=== PATIENT | male | born 1950 | race Caucasian/White ===

== ENCOUNTER → 2021-11-09 | Outpatient (CLI) | payer BC ==
[2021-11-09 17:56] LABS: HCT 40.3 % (39.6-50.0); HGB 13.4 g/dL (13.0-17.0); MCH 34.4 pg (27.0-32.0); MCHC 33.3 g/dL (32.0-37.0); MCV 103.3 fL (80.0-97.0); Mean Platelet Volume 12.5 fL (9.5-12.2); NRBC Per 100 WBC 0 /100 WBCS (0.0-0.0); Platelet Count 187 X 10*3/uL (140-440); RDW 12.2 % (11.5-14.5); WBC 6.53 X 10*3/uL (4.50-10.00)
[2021-11-09 18:11] LABS: African American GFR (CKD) 66.4 (60.0-200.0); Albumin 4.5 g/dL (3.8-4.9); Albumin/Globulin Ratio 2.75 (1.60-3.17); BUN/Creat Ratio 24.8 Ratio (12.00-20.00); Blood Urea Nitrogen 31.5 mg/dL (9.0-27.0); Calcium 9.2 mg/dL (8.7-10.3); Carbon Dioxide 22.7 mmol/L (20.0-27.5); Globulin 1.6 g/dL (1.6-3.3); Non-African American GFR(CKD) 57.3 (60.0-200.0); Potassium 5.1 mmol/L (3.5-5.5); Total Bilirubin 0.5 mg/dL (0.30-1.20); Total Protein 6.2 g/dL (6.2-8.2)
[2021-11-09 23:14] LABS: Appearance,Urine Clear (Clear); Bilirubin,Urine Negative (Negative); Blood,Urine Negative (Negative); Color,Urine Yellow (Yellow); Ketones,Urine Negative (Negative); Nitrite,Urine Negative (Negative)
[2021-11-09 23:28] LABS: Bacteria,Urine None Seen /HPF (None Seen)
== END | disposition home or self-care (01) ==
LOC: LABPAT 14:29
PROVIDERS: ATTEND Orthopaedic Surgery
DX: Z01.812 Encounter for preprocedural laboratory examination (principal)
CPT/HCPCS: 80053; 81001; 85027; 85610; 85730; 87070; 93005

== ENCOUNTER → 2021-11-16 | Outpatient (CLI) | payer BC | END | disposition home or self-care (01) | LOC: LABWHC1 14:57 | PROVIDERS: ATTEND Internal Medicine Interventional Cardiology | DX: I44.2 Atrioventricular block, complete (principal) | CPT/HCPCS: 36415; 84443 ==

== ENCOUNTER 2021-12-10 07:41 | Day surgery (SDC) | payer BC ==
[~2021-12-10 07:41] MED LIST: LACTATED RINGERS 1,000 ML IV SCH; SODIUM CHLORIDE 0.9% 1,000 ML IV SCH; ceFAZolin 1 GM in SODIUM CHLORIDE 0.9% IRRIG BTL 250 ML IRRIGATION PRN
[2021-12-10] MEDS ORDERED: SODIUM CHLORIDE 0.9% 1,000 ML IV ONE (07:56)
[2021-12-10] MEDS ORDERED: fentaNYL (PF) 50 MCG/ML 2 ML AMP ONE (09:48)
[2021-12-10] MEDS ORDERED: PROPOFOL 10 MG/ML 20 ML VIAL IV ONE (09:48)
[2021-12-10] MEDS ORDERED: MIDAZOLAM 2 MG/2 ML VIAL ONE (09:48)
[2021-12-10] MEDS ORDERED: IOPAMIDOL-370 50ML BTL INJ ONE (10:00)
[2021-12-10] MEDS ORDERED: LIDOCAINE 1% INJ 10MG/ML (30 ML VIAL-PF) SQ ONE (10:35)
--- NOTE | 2021-12-10 13:19 | P.EPPROC ---
- EP Procedure Note Electrophysiology Procedure Note: Diagnosis Bradycardia, standard pacemaker will result in RV pacing = 100% Complete heart block with severe bradycardia Procedure Biventricular pacemaker implantation with LB lead/Medtronic PERCEPTA Details Patient was brought to the EP lab in a fasting state. Written informed consent was obtained prior to the procedure. Conscious sedation provided by anesthesia team IV antibiotics administered. Local anesthesia administered. A 4 cm incision made in the pectoral area. Subfascial pocket made. Venous access obtained Venous sheaths placed. Leads placed in the right heart Atrial lead position the right atrial appendage. Medtronic atrial lead, model #5076, 52 cm in length screwed in the right atrial appendage, active fix lead P waves 1.5 mV, excellent control injury stable position, pacing impedance 437 ohms and pacing threshold 0.5 V at 0.4 ms RV lead position in the RV apex. Medtronic model #5076, 58 cm in length, active fix Pacing impedance 988 ohms, pacing threshold 1 warted 0.4 ms LB lead positioned in the septum/left bundle Medtronic model #3830, 69 cm in length Left bundle threshold 0.5 V at 0.4 ms pacing impedance 380 ohms Right bundle branch block morphology(rSR close to threshold and QR pattern at high outputs Stim-QRS peak in lead V6 = 68 msec Biventricular pacemaker device connected to the leads and placed in the subfascial pocket Patient tolerance the procedure well without acute complications Tyrx pouch placed Plan DDD mode with preferential left bundle pacing RV pacing 80 msec after LB pacing 50-130 bpm
--- NOTE | 2021-12-10 14:21 | XR ---
EXAMINATION TYPE: XR chest 1V portable DATE OF EXAM: 12/10/2021 COMPARISON: None INDICATION: Lead placement check TECHNIQUE: Single frontal view of the chest is obtained. FINDINGS: The heart size is normal. The pulmonary vasculature is normal. The lungs are clear. No pneumothorax is evident postpacemaker placement. Triple lead pacemaker is present. IMPRESSION: 1. No acute pulmonary process. 2. No pneumothorax
[2021-12-10] MEDS: ACETAMINOPHEN TAB 325 MG TAB PO PRN (20:36)
[2021-12-10 21:01] LABS: HCT 40.3 % (39.0-53.0); HGB 13.6 gm/dL (13.0-17.5); MCHC 33.6 g/dL (31.0-37.0); MCV 101.1 fL (80.0-100.0); Platelet Count 174 k/uL (150-450); RBC 3.99 m/uL (4.30-5.90); RDW 11.9 % (11.5-15.5); WBC 6.8 k/uL (3.8-10.6)
[2021-12-10 21:27] LABS: African American GFR (CKD) 57 (>60 ml/min/1.73 sqM); Anion Gap 9 mmol/L; Blood Urea Nitrogen 34 mg/dL (9-20); Calcium 8.5 mg/dL (8.4-10.2); Carbon Dioxide 24 mmol/L (22-30); Chloride 104 mmol/L (98-107); Glucose 97 mg/dL (74-99); Non-African American GFR(CKD) 49 (>60 ml/min/1.73 sqM); Potassium 4.3 mmol/L (3.5-5.1); Sodium 137 mmol/L (137-145)
[2021-12-11 04:36] VITALS: PULSE 50
[2021-12-11] MEDS: ACETAMINOPHEN TAB 325 MG TAB PO PRN (06:58)
[2021-12-11 07:25] VITALS: BP 173/72; RESP 18; TEMP 98
[2021-12-11] MEDS ORDERED: SODIUM CHLORIDE 0.9% 500 ML 500 ML IV ONE (08:15)
--- NOTE | 2021-12-11 08:17 | P.DS ---
Providers Attending physician: Bimal El Primary care physician: Stated None Hospital Course: Patient is doing well with her was blood pressure is still elevated Attending examination is normal No JVD Normal heart sounds are regular Breath sounds are clear Basic site is healed well line minimal soakage Impression Complete heart block with severe bradycardia Biventricular pacemaker with left bundle pacing Today's twelve-lead EKG shows a QRS of 150 ms right bundle branch block morphol ogy, QRS pattern At lower outputs, a typical right bundle branch block is seen Backup RV pacing Hemoglobin 13.6 BUN 34 and creatinine 1.44 Saline IV today, likely hypoperfusion with severe bradycardia Start lisinopril 20 mg by mouth daily for hypertension management Follow-up with Dr. Estrada in a week Follow-up blood pressure and renal function on lisinopril Plan - Discharge Summary Discharge Rx Participant: No New Discharge Prescriptions: No Action lisinopriL [Zestril] 20 DAILY Discharge Medication List lisinopriL [Zestril] 20 DAILY 12/11/21 [History] Follow up Appointment(s)/Referral(s): Bimal El MD [STAFF PHYSICIAN] - As Needed (Office will call with appointment date and time Appointment will be in 5-7 days at the Device Clinic at [facility] Main Office on [address]) Amna Estrada MD [STAFF PHYSICIAN] - 1 Week Activity/Diet/Wound Care/Special Instructions: PATIENT EDUCATION MATERIAL Instructions following a heart rhythm device implant. 1. Keep dressing DRY for 5 DAYS. You may cover the area with Saran or Cling Wrap, prior to a shower. 2. The dressing will be removed in the [facility] at [facility]. Absorbable sutures were used to close the wound. 3. Avoid raising the left arm above the shoulder level. 4 week restriction 4. Avoid arm movements, like backscratching, rubbing the head, or pulling on a cord. 4 weeks restriction 5. Gentle range of motion movements of the shoulder, closest to the incision should be performed to avoid a frozen shoulder. (Pendulum exercises of the shoulder) 6. The opposite arm may be used freely. 7. Avoid driving for 7 days. 8. Avoid activities such as golfing, swimming, weed whacking, lifting more than 10 pounds weight, bowling, gymnastics and weight training/lifting. (6 weeks restriction) 9. Activities such as wood chopping with an axe, pull-ups in the gymnasium, power lifting, arc-welding, being close to home induction cooktops will always be a problem. 10. Arm sling is only a reminder not to raise the arm above the head. You do not need to keep the arm completely immobilized. Your free to move the arm and use it and for normal activities. In case of any problems, please call [facility] [place], @ [phone], Attention: Device Clinic Device clinic follow-up in 5 days Follow-up with primary loan approver in 2-3 months Discharge Disposition: HOME SELF-CARE
[2021-12-11] MEDS ORDERED: lisinopriL 20 MG TAB PO SCH (09:00)
== END 2021-12-11 12:53 | disposition home or self-care (01) ==
LOC: CATHEP 07:41 → 6NMEDSUR 12:25 → CATHEP 12-11 12:53
PROVIDERS: ATTEND Internal Medicine Clinical Cardiac Electrophysiology
DX: I44.2 Atrioventricular block, complete (principal); I11.0 Hypertensive heart disease with heart failure; I50.9 Heart failure, unspecified; Z82.49 Family history of ischemic heart disease and other diseases of the circulatory system; Z79.899 Other long term (current) drug therapy
CPT/HCPCS: 33208 ×2; 80048; 85027; 71045; C1769 ×3; C2621; C1887; C1892; C1898; J2250; J0690; J2001; J3010; J2704; Q9967; 33225

== ENCOUNTER → 2021-12-26 | Outpatient (CLI) | payer BC ==
[2021-12-26 16:50] LABS: African American GFR (CKD) 88.6 (60.0-200.0); Anion Gap 9.6 mmol/L (10.00-18.00); Blood Urea Nitrogen 31.1 mg/dL (9.0-27.0); Carbon Dioxide 24.4 mmol/L (20.0-27.5); Non-African American GFR(CKD) 76.5 (60.0-200.0); Potassium 4.9 mmol/L (3.5-5.5)
== END | disposition home or self-care (01) ==
LOC: LABWHC1 10:25
PROVIDERS: ATTEND Internal Medicine Interventional Cardiology
DX: I10 Essential (primary) hypertension (principal)
CPT/HCPCS: 36415; 80051; 82565; 84520

== ENCOUNTER → 2022-01-23 | Outpatient (CLI) | payer BC ==
[2022-01-23 22:42] LABS: Basophils # (A) 0.11 X 10*3/uL (0.00-0.10); Basophils % (A) 1.5 %; Eosinophils # (A) 0.32 X 10*3/uL (0.04-0.35); Eosinophils % (A) 4.4 %; HCT 43.2 % (39.6-50.0); HGB 14.4 g/dL (13.0-17.0); Immature Grans, Automated 0.3 %; Lymphocytes # (A) 2.42 X 10*3/uL (0.90-5.00); Lymphocytes % (A) 32.9 %; MCH 33.6 pg (27.0-32.0); MCHC 33.3 g/dL (32.0-37.0); MCV 100.7 fL (80.0-97.0); Mean Platelet Volume 10.9 fL (9.5-12.2); Monocytes % (A) 8.2 %; NRBC Per 100 WBC 0 /100 WBCS (0.0-0.0); Neutrophils # (A) 3.88 X 10*3/uL (1.80-7.70); Neutrophils % (A) 52.7 %; Platelet Count 231 X 10*3/uL (140-440); RBC 4.29 X 10*6/uL (4.40-5.60); RDW 12.1 % (11.5-14.5); WBC 7.35 X 10*3/uL (4.50-10.00)
[2022-01-23 23:02] LABS: ALT 49 U/L (10-49); AST 29 U/L (14-35); African American GFR (CKD) 83.5 (60.0-200.0); Albumin 4.7 g/dL (3.8-4.9); Albumin/Globulin Ratio 2.44 (1.60-3.17); Alkaline Phosphatase 96 U/L (41-126); BUN/Creat Ratio 23.14 Ratio (12.00-20.00); Blood Urea Nitrogen 24.3 mg/dL (9.0-27.0); Calcium 9.8 mg/dL (8.7-10.3); Carbon Dioxide 25.7 mmol/L (20.0-27.5); Chloride 103 mmol/L (96-109); Chol/HDL Ratio 2.95 Ratio; Globulin 1.9 g/dL (1.6-3.3); Glucose 100 mg/dL (70-110); LDL Cholesterol,Calculated 83.4 mg/dL (0.0-131.0); Non-African American GFR(CKD) 72.1 (60.0-200.0); Potassium 4.9 mmol/L (3.5-5.5); Sodium 139 mmol/L (135-145); Total Protein 6.6 g/dL (6.2-8.2)
== END | disposition home or self-care (01) ==
LOC: LABWHC1 10:48
PROVIDERS: ATTEND Family Medicine
DX: Z12.5 Encounter for screening for malignant neoplasm of prostate (principal); E55.9 Vitamin D deficiency, unspecified; R53.83 Other fatigue; R00.1 Bradycardia, unspecified
CPT/HCPCS: 36415; 80053; 80061; 82306; 83036; 84153; 84439; 84443; 85025

== ENCOUNTER → 2022-01-23 | Outpatient (CLI) | payer BC ==
[2022-01-23 11:53] LABS: Prothrombin Time 10.2 sec (9.0-12.0)
[2022-01-23 22:58] LABS: Appearance,Urine Clear (Clear); Bilirubin,Urine Negative (Negative); Blood,Urine Negative (Negative); Color,Urine Yellow (Yellow); Ketones,Urine Negative (Negative); Nitrite,Urine Negative (Negative); PH, Urine 6.5 (5.0-8.0); Urobilinogen,Urine 0.2 (0.2,1.0)
== END | disposition home or self-care (01) ==
LOC: LABPAT 10:46
PROVIDERS: ATTEND Orthopaedic Surgery
DX: Z01.812 Encounter for preprocedural laboratory examination (principal); M16.12 Unilateral primary osteoarthritis, left hip
CPT/HCPCS: 81003; 85610; 85730; 87070

== ENCOUNTER 2022-02-03 13:49 | Day surgery (SDC) | payer BC ==
[2022-01-29 11:08] VITALS: BMI 21.8
[~2022-02-03 13:49] MED LIST changes: +ACETAMINOPHEN TAB 500 MG TAB PO PRN; +DEXAMETHASONE SOD PHOSPHATE 10 MG/ML 1 ML VIAL IV PRN; +DEXAMETHASONE SOD PHOSPHATE 4 MG/ML 1 ML VIAL IV ONE; +DOCUSATE 100 MG CAP PO PRN; +FAMOTIDINE 20 MG/2 ML VIAL IVP PRN; +HYDROmorphone 0.5 MG/0.5 ML SYRINGE IVP PRN; +KETOROLAC 15 MG/ML 1 ML VIAL IVP PRN; -LACTATED RINGERS 1,000 ML IV SCH; +ONDANSETRON 4 MG/2 ML VIAL IVP ONE; +ONDANSETRON 4 MG/2 ML VIAL IVP PRN; -SODIUM CHLORIDE 0.9% 1,000 ML IV SCH; +TRANEXAMIC ACID IN NACL,ISO-OS 1,000 MG in SALINE 1 100ML.BAG IVPB PRN; -ceFAZolin 1 GM in SODIUM CHLORIDE 0.9% IRRIG BTL 250 ML IRRIGATION PRN; +oxyCODONE ER 10 MG TAB.ER.12H PO PRN
[2022-02-03] MEDS: LACTATED RINGERS 1,000 ML IV SCH ×2 (14:17→19:29)
[2022-02-03] MEDS ORDERED: MIDAZOLAM 2 MG/2 ML VIAL IVP ONE (15:01)
--- NOTE | 2022-02-03 16:00 | P.ANPRN ---
Procedure Note - Anesthesia - Nerve Block Performed Left Other (see comment) Single Time Out Performed: Yes (IJEOMA Block) Date of Procedure: 02/03/22 Location of Patient: PreOp Indication: Acute Post-Operative Pain, Dx/Pain Location (Left hip), Requested by Surgeon Specifically requested for management of pain by DrCaleb: Donte Maurer Sedation Type: Sedate with meaningful contact maintained Preparation: Sterile Prep Position: Supine Catheter: None Needle Types: Pajunk Needle Gauge: 21 Ultrasound used to visualize needle placement: Yes Ultrasound used to observe medication spread: Yes Injectate: 0.5% Ropivacaine (see comment for volume) (30 cc + decadron 4 mg) Blood Aspirated: No Pain Paresthesia on Injection Noted: No Resistance on Injection: Normal Image Stored and Saved: Yes Events: Uneventful and Well Tolerated
[2022-02-03] MEDS ORDERED: PROPOFOL 10 MG/ML 20 ML VIAL IV ONE (16:03)
[2022-02-03] MEDS ORDERED: MIDAZOLAM 2 MG/2 ML VIAL ONE (16:03)
[2022-02-03] MEDS ORDERED: TRANEXAMIC ACID IN NACL,ISO-OS 1,000 MG/100 ML BAG ONE (16:03)
[2022-02-03] MEDS ORDERED: ROPIVACAINE 5 MG/ML 30 ML VIAL ONE (16:03)
[2022-02-03] MEDS ORDERED: fentaNYL (PF) 50 MCG/ML 2 ML AMP ONE (16:03)
[2022-02-03] MEDS ORDERED: KETAMINE 10 MG/ML 20 ML VIAL ONE (16:03)
[2022-02-03] MEDS ORDERED: DEXAMETHASONE SOD PHOSPHATE 4 MG/ML 1 ML VIAL ONE (16:03)
[2022-02-03] MEDS: ROPIVACAINE/EPI/CLONIDINE/KET 50 ML SYRINGE MISCELLANE PRN ×2 (17:06→18:28)
[2022-02-03] MEDS ORDERED: LACTATED RINGERS 1,000 ML IV ONE ×2 (17:07)
[2022-02-03] MEDS ORDERED: NALOXONE 0.4 MG/ML 1 ML VIAL IV PRN (19:08)
[2022-02-03] MEDS ORDERED: HYDROcodone/APAP 5-325MG 1 EACH TAB PO PRN ×2 (19:08)
[2022-02-03] MEDS ORDERED: ONDANSETRON 4 MG/2 ML VIAL IVP PRN (19:08)
[2022-02-03] MEDS ORDERED: hydrOXYzine pamoate 25 MG CAP PO PRN (19:08)
[2022-02-03] MEDS ORDERED: HYDROmorphone 0.5 MG/0.5 ML SYRINGE IVP PRN ×3 (19:08)
--- NOTE | 2022-02-03 19:10 | FL ---
Intraoperative/procedural fluoroscopic services were provided. Total fluoroscopy time is 58 seconds w ith a total of 7 submitted images to PACS. Please see the operative/procedural note for further detai ls.
--- NOTE | 2022-02-03 19:21 | P.OP ---
Date of Procedure: 02/03/22 Preoperative Diagnosis: Severe left hip osteoarthritis Postoperative Diagnosis: Same Procedure(s) Performed: Left direct anterior total hip arthroplasty Implants: 1. Lyubov Trident II Acetabular Cup, Size #54 (Offset liner) 2. Lyubov Insignia Size #6 Femoral Stem, High Offset 3. Biolox delta femoral head, 36 mm, - 5 neck Anesthesia: regional, spinal Surgeon: Donte Maurer Molder Helper #1: Barb Mejia Estimated Blood Loss (ml): 200 Pathology: none sent Condition: stable Disposition: PACU Indications for Procedure: I had a long discussion with the patient in the office on the potential risks and complications of an elective total hip replacement through a direct anterior approach. Risks discussed include, but are certainly not limited to, risks from anesthesia, superficial infection requiring local wound care or antibiotics, deep jannie-prosthetic joint infection and the treatment required to eradicate infection, intraoperative fracture, postoperative periprosthetic fracture, damage to local blood vessels or nerves particularly the lateral femoral cutaneous nerve, delayed wound healing requiring local wound care or possibly surgical debridement, hip dislocation, leg length discrepancy, soft tissue irri tation around the total hip implant such as iliopsoas tendinitis or trochanteric bursitis, wear and osteolysis from the implants, squeaking or audible noises, groin pain, thigh pain, heterotopic ossification, stiffness, aseptic loosening of the implants, dissatisfaction with surgical outcome, need for revision surgery, DVT, PE, swelling of the operative extremity, acute coronary event, stroke, failure to thrive, and possibly loss of life or limb. The patient understands that while these are the most common complications after an elective hip replacement there are certainly other less common complications possible. They were given ample time to ask questions regarding the potential complications of a hip replacement. Following our discussion the patient provided their verbal and written consent to go forward with an elective total hip replacement. Operative Findings: Severe left hip osteoarthritis Description of Procedure: The patient was identified in the preoperative holding area and the correct hip was marked with my initials. I reviewed the procedure and consent with the patient. All of their questions were answered. The patient was then brought back into the operating room by anesthesia. While on the [facility] anesthesia was administered by the anesthesia team. Preoperative antibiotics and tranexamic acid were also given. After the patient was under anesthesia I examined their ankles to determine their preoperative leg length discrepancy. The skin over the anterior aspect of the hip was shaved to remove hair over the site of planned incision. Both feet and ankles were padded with webril and boots for the Warren were applied. The patient was then carefully transferred onto the Warren table. A perineal post was immediately placed. The arms were placed on arm holders and were well-padded. Both boots were secured to the spars on the Warren table. The patient was positioned so that the pelvis was centered over the post. Nonsterile drapes were applied. A timeout was performed identifying the correct patient, operative extremity, and procedure. At this point fluoroscopy was brought in to take preoperative images of the pelvis and operative hip. Using the standing AP pelvis from the office as a template, a comparable image was obtained with fluoroscopy. A metallic bar was used to create a bi-ischial line for use as a reference to leg length adjustments during the procedure. Global offset was also measured on both the operative and nonoperative leg. Fluoroscopy was then brought out and a pre-scrub using a chlorhexidine scrub brush was performed. The operative limb was then prepped and draped in the standard sterile fashion. An anterior longitudinal incision was made lateral and distal to the ASIS. The skin and subcutaneous tissues were incised sharply. The underlying tensor fascia was identified and incised in its midportion. The fascia was dissected free from the underlying muscle and the muscle belly was retracted. A blunt tipped cobra retractor was placed over the superior neck under the muscle fibers of the gluteus minimus. The deep enveloping fascia of the tensor was incised. The anterior leash of vessels were then identified and cauterized. The fascia between the rectus and the capsule was then incised and the pre-capsular fat was excised. A second Cobra was placed inferior to the neck. The interval between the rectus and iliocapsularis and the hip capsule was developed and a retractor was placed carefully over the anterior rim of the acetabulum. A T-shaped anterior capsulotomy was performed. The superior capsular leaflet was left in place in the inferior capsular flap was excised. The Cobra retractors were placed intracapsularly. We then made a femoral neck osteotomy according to preoperative and intraoperative templating and confirmed the level of the osteotomy using fluoroscopic imaging. The femoral head was removed, passed off to the back table, and sized. The superior capsular flap was excised. Retractors were placed circumferentially exposing the acetabulum. We then circumferentially debrided the acetabulum free of labrum and osteophytes. The pulvinar was removed to fully visualize the cotyloid fossa. We then sequentially reamed to achieve peripheral fit and excellent bleeding subchondral bone. The socket was thoroughly irrigated. The acetabular component was impacted into the appropriate position using fluoroscopy to guide version, inclination, and depth of insertion taking care to have a comparable image of the AP pelvis to the standing image taken in the office. An excellent press-fit was achieved and final position was confirmed using fluoroscopy. The press fit was augmented with bony cancellus dome screws. The liner was then impacted into the socket. Attention was then turned to the femur. The remnant dorsal lateral capsule was excised. The short external rotators were visible and protected. A bone hook was used to confirm appropriate translation of the trochanter away from the acetabulum. The leg was then extended and adducted and the bone hook was used to elevate the femur for broaching. A box osteotome and blunt tipped canal sound was then utilized to gain access to the femoral canal. We then sequentially broached the femur in appropriate anteversion until excellent torsional stability was achieved. The neck cut was brought flush to the trial broach with a calcar planar. A trial neck and head were then placed onto the broach and the hip was atraumatically reduced under direct visualization. External rotation to 90 was performed to assess stability. Fluoroscopy was brought in. An AP and lateral fluoroscopic image of the proximal femur was obtained to assess position and fill of the trial broach. An AP of the pelvis was then obtained and matched to the preoperative image taken. A bi-ischial bar was then placed and measurements were taken to assess changes in length and o ffset. The hip was then carefully dislocated, the proximal femur was exposed, and the trial implants were removed. The wound and proximal femur was thoroughly irrigated using sterile saline and pulsatile lavage. The final femoral implant was dispensed and gently tapped into place generating an excellent press-fit. The trunnion was cleansed and the final head was tapped into place to engage the Armendariz taper. The acetabulum was irrigated and visualized to be free of debris. The hip was carefully reduced. Stability was checked clinically with external rotation to 90 and there was no evidence of instability. Final fluoroscopic images were taken. The wound was then thoroughly irrigated and soaked with a dilute Betadine rinse for 3 minutes. 3 L of sterile saline was irrigated through the wound using pulsatile lavage. Local anesthetic cocktail was injected into the soft tissues around the surgical field. A deep drain was placed. The wound was then closed in layers. A sterile dressing was placed over the surgical incision and drain site. The drapes were taken down and the patient was carefully transferred off of the Warren table. Following removal of the boots the leg lengths felt acceptable. The patient was then taken to recovery room having tolerated the procedure well. Barb Mejia PA-C was required as a skilled public health training assistant for patient positioning, surgical exposure, retraction, placement of implants, and closure of the surgical wound. PLAN: The patient can weight-bear as tolerated on the operative extremity. 2 doses of postoperative antibiotics. DVT prophylaxis with aspirin 81 mg twice a day based on preoperative risk stratification. Physical therapy for gait training. Discontinue drain postoperative day #1 if output is less than 100 mL per shift.
[2022-02-03] MEDS: ASPIRIN 81 MG PO SCH (21:20)
[2022-02-04] MEDS: LACTATED RINGERS 1,000 ML IV SCH ×2 (06:38→08:01)
[2022-02-04] MEDS: ASPIRIN 81 MG PO SCH (08:00)
--- NOTE | 2022-02-04 08:32 | P.DS ---
Providers Expected date of discharge: 02/04/22 Attending physician: Donte Maurer Consults: 02/03/22 19:08 Consult Physician Routine Consulting Provider: Ernie Valadez Consult Reason/Comments: medical management Do you want consulting provider notified?: Yes Primary care physician: Jaiv Shah [facility] Course: This is a 71-year-old male who has been followed in our office by Dr. Maurer f or continued complaints of left hip pain due to left hip osteoarthritis. Treatment options were discussed, and patient elected to undergo a left total hip arthroplasty. Patient was seen pre-operatively by Dr. Shah, Dr. Estrada and cleared for surgery. Patient underwent a direct anterior left total hip arthroplasty on 02/03/22. The procedure was performed without complication or sequelae. The patient is doing fairly well postoperatively. Vital signs and labs are stable on postoperative day #1. Patient was examined bedside this morning with Dr. Maurer. Patient states he is overall doing very well and the pain in his left hip is well-controlled. His hemovac drain was pulled this morning. He has been ambulating with a walker with minimal assistance. Patient is tolerating his breakfast well. He is voiding without issues. Patient is comfortable being discharged home today. Patient denies chest pain, shortness of breath, nausea, vomiting, fevers, chills. On examination, the patient is sitting up in the bed in no apparent distress. He is alert and orientated 3. On inspection of the left hip, there is a clean, dry, intact surgical dressing in place. There is no bleeding or drainage the dressing. Patient has good strength and ROM of the left ankle and toes. Motor and sensory function is intact of the left lower extremity. Femoral nerve function intact. The dorsalis pedis pulse is easily palpable, the left lower extremity is warm and well perfused with brisk capillary refill. Calf is soft and non-tender to palpation. Patient is discharged home with home health in good condition, pending medical clearance. Patient will follow-up with Dr. Maurer in the office in 2 weeks. Please see med rec for accurate list of discharge medication. Plan - Discharge Summary Discharge Rx Participant: Yes New Discharge Prescriptions: New Aspirin 81 mg PO BID 30 Days #60 tab HYDROcodone/APAP 5-325MG [Justin 5-325] 1 - 2 tab PO Q6HR PRN 32 Days #7 tab PRN Reason: Pain Docusate [Colace] 100 mg PO BID #60 capsule Omeprazole 40 mg PO DAILY 30 Days #30 cap Diclofenac Sodium [Voltaren] 75 mg PO BID 30 Days #60 tab No Action lisinopriL [Zestril] 20 mg PO QAM Mupirocin 2% Oint [Bactroban 2% Oint] 1 applic TOPICAL BID Vitamin C Gel 1 dose PO DAILY Discharge Medication List lisinopriL [Zestril] 20 mg PO QAM 12/11/21 [History] Mupirocin 2% Oint [Bactroban 2% Oint] 1 applic TOPICAL BID 01/29/22 [History] Vitamin C Gel 1 dose PO DAILY 01/29/22 [History] Aspirin 81 mg PO BID 30 Days #60 tab 02/04/22 [Rx] Diclofenac Sodium [Voltaren] 75 mg PO BID 30 Days #60 tab 02/04/22 [Rx] Docusate [Colace] 100 mg PO BID #60 capsule 02/04/22 [Rx] HYDROcodone/APAP 5-325MG [Justin 5-325] 1 - 2 tab PO Q6HR PRN 32 Days #7 tab 02/04/22 [Rx] Omeprazole 40 mg PO DAILY 30 Days #30 cap 02/04/22 [Rx] Follow up Appointment(s)/Referral(s): Donte Maurer MD [Medical Doctor] - 2 Weeks Activity/Diet/Wound Care/Special Instructions: Weight bear to tolerance on operative extremity with a walker. Keep operative dressing intact until follow-up appointment in the office. Call the office if dressing becomes saturated or falls off. May shower over dressing. Take pain medications as prescribed. Take aspirin 81mg BID x 4 weeks for blood clot prevention. Follow-up in the office in two weeks at [facility]. Call the office with any questions or concerns, Discharge Disposition: HOME WITH HOME HEALTH SERVICES
[2022-02-04 09:29] VITALS: BP 102/59; PULSE 97; RESP 15; TEMP 97.6
[2022-02-04 10:35] LABS: Basophils # (A) 0.02 X 10*3/uL (0.00-0.10); Basophils % (A) 0.2 %; Eosinophils # (A) 0 X 10*3/uL (0.04-0.35); Eosinophils % (A) 0 %; HCT 35.5 % (39.6-50.0); HGB 11.7 g/dL (13.0-17.0); Immature Grans, Automated 0.5 %; Lymphocytes # (A) 1.12 X 10*3/uL (0.90-5.00); Lymphocytes % (A) 10.5 %; MCH 33.3 pg (27.0-32.0); MCV 101.1 fL (80.0-97.0); Mean Platelet Volume 11.2 fL (9.5-12.2); Monocytes # (A) 0.86 X 10*3/uL (0.20-1.00); NRBC Per 100 WBC 0 /100 WBCS (0.0-0.0); Neutrophils # (A) 8.64 X 10*3/uL (1.80-7.70); Neutrophils % (A) 80.8 %; Platelet Count 203 X 10*3/uL (140-440); RBC 3.51 X 10*6/uL (4.40-5.60); RDW 12.1 % (11.5-14.5); WBC 10.69 X 10*3/uL (4.50-10.00)
--- NOTE | 2022-02-06 04:44 | P.CONS ---
History of Present Illness - Reason for Consult Consult date: 02/04/22 Medical management postop left hip arthroplasty - History of Present Illness This is a 71-year-old male who was recently admitted under orthopedic services and underwent left total hip arthroplasty and is postop day 1 currently sitting up at the side of the bed after just working with physical therapy reporting to doing well. Patient reports he has a past medical history of hypertension, osteoarthritis, pacemaker placement for bradycardia and follows with Dr. Johnson in the outpatient setting. Patient had been following outpatient for severe osteoarthritis and elected to have the surgery. Patient reports to feeling well and denies chest pain, dizziness, lightheadedness, shortness of breath, or palpitations. Patient is afebrile. Patient reports to tolerating diet and anxious to go home. Patient reports he has his medications at home and also discussed with the patient about postoperative hypotension and monitoring closely and recommend blood pressure monitoring prior to resuming medications. Review Of Systems: Constitutional: No fever, no chills, no night sweats. No weight change. No weakness, fatigue or lethargy. No daytime sleepiness. EENT: No headache. No blurred vision or double vision, no loss of vision. No loss of Hearing, no ringing in the ears, no dizziness. No nasal drainage or congestion. No epistaxis. No sore throat. Lungs: No shortness of breath, cough, no sputum production. No wheezing. Cardiovascular: No chest pain, no lower extremity edema. No palpitations. No paroxysmal nocturnal dyspnea. No orthopnea. No lightheadedness or dizziness. No syncopal episodes. Abdominal: No abdominal pain. No nausea, vomiting. No diarrhea. No constipation. No bloody or tarry stools.. No loss of appetite. Genitourinary: No dysuria, increased frequency, urgency. No urinary retention. Musculoskeletal: No myalgias. No muscle weakness, no gait dysfunction, no frequent falls. No back pain. No neck pain. Reports some mild left hip discomfort Integumentary: No wounds, no lesions. No rash or pruritus. No unusual bruising. No change in hair or nails. Neurologic: No aphasia. No facial droop. No change in mentation. No head injury. No headache. No paralysis. No paresthesia. Psychiatric: No depression. No anxiety. No mood swings. Endocrine: No abnormal blood sugars. No weight change. No excessive sweating or thirst. No cold intolerance. PHYSICAL EXAMINATION: GENERAL: The patient is alert and oriented x4, thin built, elderly appearing male Well developed, well nourished. HEENT: Pupils are round and equally reacting to light. EOMI. no scleral icterus. No conjunctival pallor. Normocephalic, atraumatic. No pharyngeal erythema. No thyromegaly. CARDIOVASCULAR: S1 and S2 muffled PULMONARY: diminished breath sounds bilaterally with no wheezing or rhonchi noted. ABDOMEN: soft. Nontender on exam. non-distended, normoactive bowel sounds. No palpable organomegaly. MUSCULOSKELETAL: No joint swelling or deformity. EXTREMITIES: No cyanosis, clubbing, or pedal edema. Left hip surgical site anterior dressing is dry and intact NEUROLOGICAL: Gross neurological examination did not reveal any focal deficits. SKIN: No rashes. Assessment: Status post left total hip arthroplasty, anterior approach, postop day 1 History of hypertension History of osteoarthritis Bradycardia with history of pacemaker placement GI prophylaxis DVT prophylaxis Full code Plan: Recommend to continue with current medications and management per orthopedic services. Patient has been seen and evaluated by PT/OT therapy and reports to doing relatively well. Patient reports he has a walker at home and lives with his son and is extremely anxious to go home. Patient has been cleared by orthopedics for discharge today. All medications have been reviewed and resumed and recommend monitoring blood pressure closely and if systolic is less than 100 recommend holding blood pressure medications and following up with Dr. Shah. Encouraged incentive spirometer use at least 10 times every hour while awake Encouraged oral intake Pain management and DVT prophylaxis per orthopedics We will continue to follow with orthopedics during hospitalization. Thank you kindly for this consultation. Discussed with the patient about following up with primary care provider Dr. Shah on discharge. Patient verbalized understanding. The impression and plan of care has been dictated by Salma Mao, nurse practitioner as directed. Dr. Antony MD I have performed a history and examination and MDM of this patient, discussed the same with the dictator, and agree with the dictator's assessment and plan as written ,documented as a scribe. Based on total visit time, I have performed more than 50% of the visit. Any additional findings or plans will be noted. Past Medical History Past Medical History: Hearing Disorder / Deafness, Hypertension, Osteoarthritis (OA) Additional Past Medical History / Comment(s): Hard of hearing. Pacemaker for bradycardia. History of Any Multi-Drug Resistant Organisms: None Reported Past Surgical History: Hernia Repair, Pacemaker Additional Past Surgical History / Comment(s): Bilateral retinal surgery for macular puckers. Past Anesthesia/Blood Transfusion Reactions: No Reported Reaction Type of Cardiac Device: Unknown Device Placement Date:: 12/10/21 Past Psychological History: No Psychological Hx Reported Smoking Status: Former smoker Past Alcohol Use History: None Reported Additional Past Alcohol Use History / Comment(s): Quit smoking quit 50 yrs ago. Quit drinking 35 yrs ago. Past Drug Use History: None Reported - Past Family History Father Family Medical History: Neurologic Disorder Additional Family Medical History / Comment(s): Parkinson's. Mother Family Medical History: Osteoarthritis (OA), Rheumatoid Arthritis (RA) Medications and Allergies Home Medications Medication Instructions Recorded Confirmed Type lisinopriL [Zestril] 20 mg PO QAM 12/11/21 02/03/22 History Mupirocin 2% Oint [Bactroban 2% 1 applic TOPICAL BID 01/29/22 02/03/22 History Oint] Vitamin C Gel 1 dose PO DAILY 01/29/22 02/03/22 History Aspirin 81 mg PO BID 30 Days #60 tab 02/04/22 Rx Diclofenac Sodium [Voltaren] 75 mg PO BID 30 Days #60 tab 02/04/22 Rx Docusate [Colace] 100 mg PO BID #60 capsule 02/04/22 Rx HYDROcodone/APAP 5-325MG [[place] 1 - 2 tab PO Q6HR PRN 32 Days #7 02/04/22 Rx 5-325] tab Omeprazole 40 mg PO DAILY 30 Days #30 cap 02/04/22 Rx Allergies Allergy/AdvReac Type Severity Reaction Status Date / Time No Known Allergies Allergy Verified 02/03/22 14:19 Physical Exam Vitals: Vital Signs Temp Pulse Pulse Resp BP Pulse Ox 02/04/22 08:00 97.6 F 97 15 102/59 97 02/04/22 02:00 98 F 88 22 104/63 98 02/03/22 22:00 85 123/72 94 L 02/03/22 21:45 90 132/69 95 02/03/22 21:30 86 124/70 95 02/03/22 21:15 87 125/74 97 02/03/22 21:00 68 114/68 96 02/03/22 20:45 76 119/68 96 02/03/22 20:30 77 124/66 96 02/03/22 20:16 79 133/74 98 02/03/22 20:00 97.7 F 76 22 138/65 97 02/03/22 19:48 66 16 123/59 98 02/03/22 19:33 74 16 118/55 98 02/03/22 19:17 61 16 119/58 98 02/03/22 19:01 97.2 F L 69 14 106/53 96 02/03/22 15:10 68 18 137/65 98 02/03/22 14:23 98.5 F 76 18 137/63 97 Intake and Output 02/03/22 02/04/22 02/04/22 22:59 06:59 14:59 Intake Total 1050 480 Output Total 200 160 Balance 850 320 Intake: IV 1050 Oral 480 Output: Drainage 160 Left Hip 160 Estimated Blood Loss 200 Other: Voiding Method Urinal # Voids 2 Weight 66.6 kg Results CBC & Chem 7: 02/04/22 06:31 Labs: Abnormal Lab Results - Last 24 Hours (Table) 02/04/22 Range/Units 06:31 WBC 10.69 H (4.50-10.00) X 10*3/uL RBC 3.51 L (4.40-5.60) X 10*6/uL Hgb 11.7 L (13.0-17.0) g/dL Hct 35.5 L (39.6-50.0) % MCV 101.1 H (80.0-97.0) fL MCH 33.3 H (27.0-32.0) pg Immature Gran # 0.05 H (0.00-0.04) X 10*3/uL Neutrophils # 8.64 H (1.80-7.70) X 10*3/uL Eosinophils # 0 L (0.04-0.35) X 10*3/uL
== END 2022-02-04 12:37 | disposition home health service (06) ==
LOC: OR 13:49 → 4SSUR 19:01 → OR 02-04 12:37
PROVIDERS: ATTEND Orthopaedic Surgery
DX: M16.12 Unilateral primary osteoarthritis, left hip (principal); G89.18 Other acute postprocedural pain; I10 Essential (primary) hypertension; H91.90 Unspecified hearing loss, unspecified ear; R26.81 Unsteadiness on feet; F15.90 Other stimulant use, unspecified, uncomplicated; Z95.0 Presence of cardiac pacemaker; Z98.890 Other specified postprocedural states; Z87.891 Personal history of nicotine dependence; Z79.899 Other long term (current) drug therapy
CPT/HCPCS: 27130; 97162; 64447; 86900; 86901; 85025; 86850; 73501; C1776; J2250; J1100 ×2; J0690 ×2; J2405; J3010; J2795; J1885; J2704

== ENCOUNTER 2022-02-04 22:40 | Emergency (ER) | payer BC ==
[2022-02-04 22:51] VITALS: RESP 16; TEMP 98
[2022-02-05 00:14] VITALS: BP 132/58; PULSE 86
--- NOTE | 2022-02-05 00:16 | ED ---
General Adult HPI - General Chief complaint: Syncope Stated complaint: syncope Time Seen by Provider: 02/04/22 23:27 Source: patient Mode of arrival: EMS Limitations: no limitations - History of Present Illness Initial comments: This patient is a 71-year-old man who presents to have evaluation after he had syncopal episode tonight. The patient reports that he had been feeling a little dizzy in the afternoon. He was going to go to bed which required getting up to go upstairs. He states he was feeling lightheaded and then actually passed out. His son caught him and prevent to the fall. He did regain consciousness after brief interval. There was no reported seizure activity or postictal period. He did not have chest pain, palpitations, dyspnea, diaphoresis or other symptoms. Family called EMS who did start an IV and administer saline. Patient states that this did relieve the lightheadedness that he was having and felt much better. The patient states that he is not having any issues related to his left hip surgery. He has not noticed any bleeding through the dressing. No fever or chills. No leg pain or swelling. He has been using his calf muscles. He has been using his incentive spirometer Onset/Timin -: hour(s) Severity scale (1-10): 0 Consistency: now resolved Improves with: none Worsens with: none Associated Symptoms: syncope Treatments Prior to Arrival: none - Related Data Home Medications Medication Instructions Recorded Confirmed lisinopriL [Zestril] 20 mg PO QAM 12/11/21 02/03/22 Mupirocin 2% Oint [Bactroban 2% 1 applic TOPICAL BID 01/29/22 02/03/22 Oint] Vitamin C Gel 1 dose PO DAILY 01/29/22 02/03/22 Previous Rx's Medication Instructions Recorded Aspirin 81 mg PO BID 30 Days #60 tab 02/04/22 Diclofenac Sodium [Voltaren] 75 mg PO BID 30 Days #60 tab 02/04/22 Docusate [Colace] 100 mg PO BID #60 capsule 02/04/22 HYDROcodone/APAP 5-325MG [[place] 1 - 2 tab PO Q6HR PRN 32 Days #7 02/04/22 5-325] tab Omeprazole 40 mg PO DAILY 30 Days #30 cap 02/04/22 Allergies Allergy/AdvReac Type Severity Reaction Status Date / Time No Known Allergies Allergy Verified 02/03/22 14:19 Review of Systems ROS Statement: Those systems with pertinent positive or pertinent negative responses have been documented in the HPI. ROS Other: All systems not noted in ROS Statement are negative. Constitutional: Denies: fever, chills Eyes: Denies: vision change Respiratory: Denies: cough, dyspnea Cardiovascular: Reports: syncope. Denies: chest pain, palpitations, edema Gastrointestinal: Denies: abdominal pain, nausea, vomiting Genitourinary: Denies: dysuria, hematuria Musculoskeletal: Denies: back pain Skin: Denies: rash Neurological: Denies: headache, weakness, numbness Psychiatric: Denies: anxiety Past Medical History Past Medical History: Hypertension, Osteoarthritis (OA) Additional Past Medical History / Comment(s): see dr El's [facility] & P. bradycardia, History of Any Multi-Drug Resistant Organisms: None Reported Past Surgical History: Hernia Repair Additional Past Surgical History / Comment(s): retinal surgery for macular puc kers harsha. inguinal not sure of side Past Anesthesia/Blood Transfusion Reactions: No Reported Reaction Past Psychological History: No Psychological Hx Reported Smoking Status: Former smoker Past Alcohol Use History: None Reported Past Drug Use History: None Reported - Past Family History Father Family Medical History: Neurologic Disorder Mother Family Medical History: Osteoarthritis (OA), Rheumatoid Arthritis (RA) General Exam General appearance: alert, in no apparent distress Head exam: Present: atraumatic, normocephalic Eye exam: Present: normal appearance. Absent: scleral icterus, conjunctival injection ENT exam: Present: normal oropharynx Neck exam: Present: normal inspection, full ROM Respiratory exam: Present: normal lung sounds bilaterally. Absent: respiratory distress, wheezes, rales, rhonchi, stridor Cardiovascular Exam: Present: regular rate, normal rhythm, normal heart sounds. Absent: systolic murmur, diastolic murmur, rubs, gallop GI/Abdominal exam: Present: soft. Absent: distended, tenderness, guarding, rebound, rigid, mass Extremities exam: Present: normal inspection, normal capillary refill, other (Patient's surgical dressing is clean dry and intact. There is no abnormal erythema or warmth.). Absent: pedal edema, calf tenderness Back exam: Present: normal inspection. Absent: CVA tenderness (R), CVA tenderness (L) Neurological exam: Present: alert Skin exam: Present: warm, dry, intact, normal color. Absent: rash Course Vital Signs 02/04/22 02/04/22 22:48 23:51 Temperature 98 F Pulse Rate 88 86 Respiratory 16 16 Rate Blood Pressure 132/74 132/58 O2 Sat by Pulse 97 96 Oximetry EKG Findings - EKG Comments: EKG Findings:: The 12-lead ECG shows what appears to be atrial sensed ventricula r paced rhythm at 86 bpm. Notation is made of suspected unspecified pacemaker failure. - EKG Results: EKG: interpreted by ROBERT Medical Decision Making - Medical Decision Making This patient is a 71-year-old man here after syncopal episode. I did discuss that given his recent hip surgery, we should perform some lab tests as well as considering ultrasound of his leg and also interrogate his pacemaker even the ECG interpretation. The patient states that he is feeling well, and that the IV administered by EMS had resolved all of his symptoms. He wants go home. He will arrange follow-up with cardiology. He'll return here if any symptoms recur. He does understand there is some risk associated and is accepting of this. - Lab Data Result diagrams: 02/05/22 00:13 02/05/22 00:13 Lab Results 02/05/22 02/05/22 02/05/22 Range/Units 00:13 00:13 00:13 WBC 11.3 H (3.8-10.6) k/uL RBC 3.00 L (4.30-5.90) m/uL Hgb 10.1 L D (13.0-17.5) gm/dL Hct 29.3 L (39.0-53.0) % MCV 97.4 (80.0-100.0) fL MCH 33.6 (25.0-35.0) pg MCHC 34.5 (31.0-37.0) g/dL RDW 11.9 (11.5-15.5) % Plt Count 180 (150-450) k/uL MPV 9.0 Neutrophils % 83 % Lymphocytes % 8 % Monocytes % 7 % Eosinophils % 1 % Basophils % 0 % Neutrophils # 9.3 H (1.3-7.7) k/uL Lymphocytes # 0.9 L (1.0-4.8) k/uL Monocytes # 0.8 (0-1.0) k/uL Eosinophils # 0.1 (0-0.7) k/uL Basophils # 0.0 (0-0.2) k/uL PT 10.6 (9.0-12.0) sec INR 1.0 (<1.2) APTT 21.1 L (22.0-30.0) sec Sodium 136 L (137-145) mmol/L Potassium 3.9 (3.5-5.1) mmol/L Chloride 107 (98-107) mmol/L Carbon Dioxide 24 (22-30) mmol/L Anion Gap 5 mmol/L BUN 35 H (9-20) mg/dL Creatinine 0.94 (0.66-1.25) mg/dL Est GFR (CKD-EPI)AfAm >90 (>60 ml/min/1.73 sqM) Est GFR (CKD-EPI)NonAf 83 (>60 ml/min/1.73 sqM) Glucose 161 H (74-99) mg/dL Calcium 8.2 L (8.4-10.2) mg/dL Total Bilirubin 0.5 (0.2-1.3) mg/dL AST 51 (17-59) U/L ALT 24 (4-49) U/L Alkaline Phosphatase 68 (38-126) U/L Troponin I (0.000-0.034) ng/mL Total Protein 5.0 L (6.3-8.2) g/dL Albumin 3.1 L (3.5-5.0) g/dL 02/05/22 Range/Units 00:13 WBC (3.8-10.6) k/uL RBC (4.30-5.90) m/uL Hgb (13.0-17.5) gm/dL Hct (39.0-53.0) % MCV (80.0-100.0) fL MCH (25.0-35.0) pg MCHC (31.0-37.0) g/dL RDW (11.5-15.5) % Plt Count (150-450) k/uL MPV Neutrophils % % Lymphocytes % % Monocytes % % Eosinophils % % Basophils % % Neutrophils # (1.3-7.7) k/uL Lymphocytes # (1.0-4.8) k/uL Monocytes # (0-1.0) k/uL Eosinophils # (0-0.7) k/uL Basophils # (0-0.2) k/uL PT (9.0-12.0) sec INR (<1.2) APTT (22.0-30.0) sec Sodium (137-145) mmol/L Potassium (3.5-5.1) mmol/L Chloride (98-107) mmol/L Carbon Dioxide (22-30) mmol/L Anion Gap mmol/L BUN (9-20) mg/dL Creatinine (0.66-1.25) mg/dL Est GFR (CKD-EPI)AfAm (>60 ml/min/1.73 sqM) Est GFR (CKD-EPI)NonAf (>60 ml/min/1.73 sqM) Glucose (74-99) mg/dL Calcium (8.4-10.2) mg/dL Total Bilirubin (0.2-1.3) mg/dL AST (17-59) U/L ALT (4-49) U/L Alkaline Phosphatase (38-126) U/L Troponin I <0.012 (0.000-0.034) ng/mL Total Protein (6.3-8.2) g/dL Albumin (3.5-5.0) g/dL Disposition Clinical Impression: Syncope Disposition: HOME SELF-CARE Condition: Undetermined Instructions (If sedation given, give patient instructions): Syncope (ED) Additional Instructions: As we discussed, call Dr. Estrada regarding the ECG to arrange follow-up Is patient prescribed a controlled substance at d/c from ED?: No Referrals: Javi Shah DO [Primary Care Provider] - 1-2 days Amna Estrada MD [STAFF PHYSICIAN] - 1-2 days
[2022-02-05 00:18] LABS: Basophils % (A) 0 %; Eosinophils # (A) 0.1 k/uL (0-0.7); Eosinophils % (A) 1 %; HCT 29.3 % (39.0-53.0); Lymphocytes # (A) 0.9 k/uL (1.0-4.8); Lymphocytes % (A) 8 %; MCH 33.6 pg (25.0-35.0); MCHC 34.5 g/dL (31.0-37.0); MCV 97.4 fL (80.0-100.0); Monocytes # (A) 0.8 k/uL (0-1.0); Monocytes % (A) 7 %; Neutrophils # (A) 9.3 k/uL (1.3-7.7); Neutrophils % (A) 83 %; Platelet Count 180 k/uL (150-450); RDW 11.9 % (11.5-15.5); WBC 11.3 k/uL (3.8-10.6)
[2022-02-05 00:29] LABS: ALT 24 U/L (4-49); AST 51 U/L (17-59); African American GFR (CKD) >90 (>60 ml/min/1.73 sqM); Albumin 3.1 g/dL (3.5-5.0); Alkaline Phosphatase 68 U/L (38-126); Anion Gap 5 mmol/L; Blood Urea Nitrogen 35 mg/dL (9-20); Calcium 8.2 mg/dL (8.4-10.2); Carbon Dioxide 24 mmol/L (22-30); Chloride 107 mmol/L (98-107); Glucose 161 mg/dL (74-99); Non-African American GFR(CKD) 83 (>60 ml/min/1.73 sqM); Potassium 3.9 mmol/L (3.5-5.1); Sodium 136 mmol/L (137-145); Total Bilirubin 0.5 mg/dL (0.2-1.3)
[2022-02-05 00:37] LABS: HGB 10.1 gm/dL (13.0-17.5)
[2022-02-05 00:38] LABS: Partial Thromboplastin Time 21.1 sec (22.0-30.0); Prothrombin Time 10.6 sec (9.0-12.0)
== END 2022-02-05 00:24 | disposition home or self-care (01) ==
LOC: EC 22:40
DX: R42 Dizziness and giddiness (principal); I10 Essential (primary) hypertension; Z87.891 Personal history of nicotine dependence; Z79.899 Other long term (current) drug therapy
CPT/HCPCS: 36415; 80053; 84484; 85025; 85610; 85730; 99285

== ENCOUNTER → 2022-08-26 | Outpatient (CLI) | payer MEDICARE ==
[2022-08-26 16:23] LABS: ALT 32 U/L (10-49); AST 25 U/L (14-35); Albumin 4.6 d/dL (3.8-4.9); Albumin/Globulin Ratio 2.09 Ratio (1.60-3.17); Alkaline Phosphatase 93 U/L (41-126); Blood Urea Nitrogen 25.1 mg/dL (9.0-27.0); Calcium 9.7 mg/dL (8.7-10.3); Carbon Dioxide 24.1 mmol/L (21.6-31.8); Chloride 106 mmol/L (96-109); Chol/HDL Ratio 2.58 Ratio; Globulin 2.2 d/dL (1.6-3.3); Glucose 108 mg/dL (70-110); LDL Cholesterol,Calculated 84.2 mg/dL (0.0-131.0); Potassium 4.6 mmol/L (3.5-5.5); Sodium 141 mmol/L (135-145); Total Bilirubin 0.5 mg/dL (0.3-1.2); Total Protein 6.8 d/dL (6.2-8.2); VLDL Calculation 14.44 mg/dL (5.00-40.00)
== END | disposition home or self-care (01) ==
LOC: LABWHC1 08:27
PROVIDERS: ATTEND Internal Medicine Interventional Cardiology
DX: E78.2 Mixed hyperlipidemia (principal)
CPT/HCPCS: 36415; 80053; 80061

== ENCOUNTER → 2023-08-04 | Outpatient (CLI) | payer MEDICARE ==
[2023-08-04 15:07] LABS: ALT 40 U/L (10-49); AST 25 U/L (14-35); Albumin 4.5 g/dL (3.8-4.9); Albumin/Globulin Ratio 2.37 Ratio (1.60-3.17); Alkaline Phosphatase 81 U/L (41-126); BUN/Creat Ratio 23.83 Ratio (12.00-20.00); Blood Urea Nitrogen 28.6 mg/dL (9.0-27.0); Calcium 9.3 mg/dL (8.7-10.3); Carbon Dioxide 25.1 mmol/L (21.6-31.8); Chloride 106 mmol/L (96-109); Chol/HDL Ratio 2.07 Ratio; Globulin 1.9 g/dL (1.6-3.3); Glucose 112 mg/dL (70-110); LDL Cholesterol,Calculated 46.3 mg/dL (0.0-131.0); Potassium 4.5 mmol/L (3.5-5.5); Sodium 141 mmol/L (135-145); Total Bilirubin 0.4 mg/dL (0.3-1.2); Total Protein 6.4 g/dL (6.2-8.2); VLDL Calculation 15.72 mg/dL (5.00-40.00)
== END | disposition home or self-care (01) ==
LOC: LABWHC1 07:16
PROVIDERS: ATTEND Internal Medicine Interventional Cardiology
DX: I10 Essential (primary) hypertension (principal); E78.2 Mixed hyperlipidemia
CPT/HCPCS: 36415; 80053; 80061

== ENCOUNTER → 2024-02-13 | Outpatient (CLI) | payer MEDICARE ==
[2024-02-13 15:46] LABS: ALT 48 U/L (10-49); AST 34 U/L (14-35); Chol/HDL Ratio 1.73 Ratio; LDL Cholesterol,Calculated 41.2 mg/dL (0.0-131.0)
== END | disposition home or self-care (01) ==
LOC: LABWHC1 09:38
PROVIDERS: ATTEND Internal Medicine Interventional Cardiology
DX: E78.2 Mixed hyperlipidemia (principal)
CPT/HCPCS: 36415; 80061; 84450; 84460